=== PATIENT | female | born 1990 | race African-American/Black ===

== ENCOUNTER 2017-10-23 10:55 | Emergency (ER) | payer SELFPAY ==
[~2017-10-23] VITALS: Ht 167.6 cm; Wt 86.6 kg
[2017-10-23] MEDS ORDERED: IBUPROFEN 600 MG TAB PO STA (11:53)
[2017-10-23 12:01] VITALS: BP 148/74
== END 2017-10-23 12:02 | disposition home or self-care (01) ==
LOC: FSED 10:55
DX: R30.0 Dysuria (principal); R10.30 Lower abdominal pain, unspecified; N30.01 Acute cystitis with hematuria
CPT/HCPCS: 81003; 81025; 87086; 99283

== ENCOUNTER 2018-07-01 21:08 | Emergency (ER) | payer SELFPAY ==
[~2018-07-01] VITALS: Ht 165.1 cm; Wt 97.2 kg
== END 2018-07-01 21:50 | disposition left against medical advice (07) ==
LOC: FSED 21:08
DX: R05 Cough (principal)

== ENCOUNTER 2021-05-15 18:49 | Emergency (ER) | payer OTHER ==
[~2021-05-15] VITALS: Ht 165.1 cm; Wt 90.7 kg
[2021-05-15] MEDS ORDERED: NAPROSYN500 MG PO (20:44)
[2021-05-15] MEDS ORDERED: CYCLOBENZAPRINE10 MG PO (20:46)
== END 2021-05-15 22:03 | disposition home or self-care (01) ==
LOC: FSED 18:56
DX: S16.1XXA Strain of muscle, fascia and tendon at neck level, initial encounter (principal); S39.012A Strain of muscle, fascia and tendon of lower back, initial encounter; V43.52XA Car driver injured in collision with other type car in traffic accident, initial encounter; Y92.488 Other paved roadways as the place of occurrence of the external cause
CPT/HCPCS: 81025; 99283

== ENCOUNTER 2022-10-05 23:13 | Emergency (ER) | payer OTHER ==
[~2022-10-05] VITALS: Ht 165.1 cm; Wt 90.7 kg
[~2022-10-05 23:13] MED LIST: CYCLOBENZAPRINE10 MG PO; NAPROSYN500 MG PO
[2022-10-05] MEDS ORDERED: TRAMADOL HCL 50 MG TAB PO ONE (23:30)
[2022-10-05] MEDS ORDERED: HYDROCODONE/APAP 5MG-325MG TAB ONE (23:41)
[2022-10-05] MEDS ORDERED: HYDROCODONE/APAP 5MG-325MG TAB PO ONE (23:45)
[2022-10-06 03:30] VITALS: O2SAT 98
[2022-10-06] MEDS ORDERED: ULTRAM 50MG50 MG PO (03:31)
[2022-10-06] MEDS ORDERED: ACETAMINOPHEN-1 EAC4 PO (03:32)
== END 2022-10-06 03:55 | disposition home or self-care (01) ==
LOC: FSED 23:26
DX: S81.811A Laceration without foreign body, right lower leg, initial encounter (principal); M84.361A Stress fracture, right tibia, initial encounter for fracture; W22.8XXA Striking against or struck by other objects, initial encounter; Y92.89 Other specified places as the place of occurrence of the external cause
CPT/HCPCS: 99284

== ENCOUNTER 2024-07-15 18:28 | Emergency (ER) | payer SELFPAY ==
[~2024-07-15] VITALS: Ht 165.1 cm; Wt 117.9 kg
[~2024-07-15 18:28] MED LIST changes: +ACETAMINOPHEN-1 EAC4 PO; +ULTRAM 50MG50 MG PO
[2024-07-15 18:44] VITALS: PULSE 93; RESP 20; TEMP 98.2
[2024-07-15] MEDS: FLUORESCEIN SOD(OPTH) 1 MG STRP OS ONE (18:58)
[2024-07-15] MEDS: TETRACAINE HCL 0.5% OPTH SOLN 4 ML BTL OS ONE (18:59)
[2024-07-15] MEDS ORDERED: CILOXAN3.5 GM OS (19:08)
[2024-07-15 19:22] VITALS: BP 172/97; PULSE 86; RESP 18; O2SAT 99
== END 2024-07-15 19:22 | disposition home or self-care (01) ==
LOC: FSED 18:35
DX: H18.822 Corneal disorder due to contact lens, left eye (principal)
CPT/HCPCS: 99283